=== PATIENT | male | born 1975 | race Caucasian/White ===

== ENCOUNTER 2024-03-17 20:31 | Emergency (ER) | payer OTHER, SELFPAY ==
--- OUTSIDE RECORDS SUMMARY | 2024-03-17 20:32 | XMS_ITS | Clinical Summary ---
Author Organization [employer] [facility] Address [place], [place] [address] Care Team Providers Care Stem Crusher Name Role Phone Lg Kika Elda RN Unavailable [phone] Allergies No known active allergies Medications lancets (Accu-Chek FastClix Lancing Dev)Indications:Diab etes mellitus without complication (HC) Dispense item covered by pt ins. E11.65 NIDDM type II, uncontrolled - Test 2 times/day. Reason: High A1C and New diabetes 100 Each 5 02/09/20 21 Active blood sugar diagnostic (Accu-Chek Guide test strips) stripIndications:Yasmin betes mellitus without complication (HC) TEST 2 TIMES PER DAY FOR HIGH A1C AND NEW DIAGNOSIS 200 Each 3 07/04/19 22 Active durable medical equipment (DME)Indications:Ness ntar fasciitis PLANTAR FASCIITIS NIGHT SPLINT, LARGE, REF: [id number] 1 Each 05/23/19 23 Active CPAPIndications:CHESTER (obstructive sleep apnea) CPAP machine for home use at pressure 9.4cmw, nasal mask x1/3month with nasal pillows x 2/mo 1 Each 11 06/21/19 23 Active omeprazole (PRILOSEC) 20 mg Delayed-Release capsuleIndications:G astroesophageal reflux disease with esophagitis without hemorrhage Take 1 Capsule (20 mg) by mouth once daily before a meal. 90 Capsule 3 07/12/19 24 Active fenofibrate nanocrystallized (TRICOR) 145 mg tabletIndications:Mi xed hyperlipidemia Take 1 Tablet (145 mg) by mouth once daily with a meal. 90 Tablet 3 07/12/19 24 Active meclizine (ANTIVERT) 25 mg tabletIndications:Ve rtigo Take 1 Tablet (25 mg) by mouth 3 times daily if needed for Vertigo. 90 Tablet 3 07/12/19 24 Active ondansetron (ZOFRAN ODT) 4 mg disintegrating tabletIndications:Ve rtigo Place 1 Tablet (4 mg) on the tongue every 8 hours if needed for Nausea/Vomiting . 18 Tablet 1 07/12/19 24 Active dulaglutide (TRULICITY) 3 mg/0.5 mL subcutaneous penIndications:Type 2 diabetes mellitus without complication, without long-term current use of insulin (HC) Inject 3 mg subcutaneous once weekly. 6 mL 3 07/15/19 24 Active rosuvastatin (CRESTOR) 5 mg tabletIndications:Ty pe 2 diabetes mellitus without complication, without long-term current use of insulin (HC),Mixed hyperlipidemia Take 1 Tablet (5 mg) by mouth at bedtime. 90 Tablet 1 07/15/19 24 Active polyethylene glycol-electrolyte (GOLYTELY) 236-22.74-6.74 -5.86 gram suspensionIndication s:Encounter for screening colonoscopy Drink 2 liters the day before colonoscopy and 2 liters 6 hours before colonoscopy appointment 4000 mL 02/03/20 24 Active CPAPIndications:CHESTER (obstructive sleep apnea) CPAP machine for home use at pressure 9.4cmw, CPAP mask- mask of choice, fit to comfort one per 3 months 1 Each 11 07/24/19 24 Active metFORMIN (GLUCOPHAGE) 1,000 mg tabletIndications:Ty pe 2 diabetes mellitus without complication, without long-term current use of insulin (HC) TAKE 1 TABLET TWICE A DAY WITH MEALS 180 Tablet 01/28/20 24 Active Active Problems Problem Noted Date Diagnosed Date Type 2 diabetes mellitus wit h hyperglycemia, without long-term current use of insulin 02/08/2021 Chronic insomnia 09/29/2018 Type 2 diabetes mellitus wit hout complication, without long-term current use of insulin 07/16/2018 CHESTER 04/11/2015 AHI-19, most supine 04/14/2015 Hypertriglyceridemia 01/11/2011 Fatty liver 01/11/2011 Obesity, unspecified 01/11/2011 Esophageal reflux 08/21/2006 Encounters Date Type Department Care Team Description 01/25/2024 Refill [facility] [address] [place] [address] Sparkle Romero PA Refill Request (Metformin) from Last 3 Months Immunizations Name Administration Dates Next Due COVID-19 vaccine (TrueFacet-Bio NTech 30mcg/0.3mL) PF, MDV 06/23/2020 Influenza A (H1N1), Inactivated 04/12/2009 Influenza A (H1N1), Inactiva joaquin (Age >=3 Years) 04/12/2009 Influenza, IIV3 (Age 6-35 mos) 04/12/2009 Influenza, IIV3 (Age >=3 years) 01/04/20 21,03/26/2013,03/21/2012,2009,04/12/2009,02/06/2007,01/19/2006,1 Influenza, IIV4 01/10/2022, 9,01/11/2016,2014 Td (Age >=7 Years) 07/09/2002 Tdap 07/12/2023,09/30/2012 Family History Medical History Relation Name Comments Heart Disease Father mi Stroke Father Diabetes Mother Stroke Mother multiple stroke s Diabetes Sister 1 No Known Problems Sister 2 Relation Name Status Comments Father Alive Mother Sister 1 Alive Sister 2 Alive Social History Tobacco Use Types Packs/Day Years Used Date Smoking Tobacco: Former Cigarettes 1 5 1 - 12/09/2005 Smokeless Tobacco: Never Tobacco Cessation:Counseling Given: Yes Alcohol Use Standard Drinks/Week Comments Yes 0 (1 standard drink = 0.6 oz pur e alcohol) rare [facility] Utilities Answer Date Recorded Do you have trouble paying f or utilities (for example, heat, electricity, water, phone)? Yes 07/12/2023 PHQ-2 Answer Date Recorded PHQ-2 TOTAL SCORE 0 04/25/2022 Social Connections Answer Date Recorded Do you often feel lonely or isolated from those around you? 0 07/12/2023 Financial Resource Strain Answer Date R ecorded Difficulty of Paying Living Expenses 3 07/12/2023 Difficulty of Paying Living Expenses Not on file 07/12/2023 Food Insecurity Answer Date Recorded Do you worry your food will run out before you are able to buy more? 1 07/12/2023 Transportation Needs Answer Date Record ed Does lack of transportation keep you from medica l appointments? 1 07/12/2023 Does lack of transportation keep you from work, meetings or getting things that you need? 1 07/12/2023 Housing Stability Answer Date Recorded What is your housing situation today? 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 Gender Identity Not on file Sexual Orientation Not on file Occupation Industry Job Start Date Job End Date [employer] S[employer] Not on file Not on file Not on file Obstetrics History Last Filed Vital Signs Vital Sign Reading Time Taken Comments Blood Pressure 138/83 07/12/2023 4:09 PM CDT Pulse 67 07/12/2023 4:09 PM CDT Temperature 36.6 C (97.9 F) 05/26/2020 6:25 PM CDT Respiratory Rate 16 05/26/2020 6:25 PM CDT Oxygen Saturation 99% 07/12/2023 4:09 PM CDT Inhaled Oxygen Concentration - - Weight 120.1 kg (264 lb 12.8 oz) 07/12/2023 4:09 PM CDT Height 182.9 cm (6') 07/12/2023 4:09 PM CDT Body Mass Index 35.91 07/12/2023 4:09 PM CDT Plan of Treatment Health Maintenance Due Date Last Done Comments Pneumococcal series for age 6-49 (1 of 2 - PCV) 09/17/1979 Hepatitis B series for Diabe macario (1 of 3 - 19+ 3-dose series) 1992 Pneumococcal series for age 50+ (1 of 2 - PCV) 1992 Colonoscopy through age 75 2018 Depression screening for age 12+ 04/25/2023 04/25/2022, 07/03/2021, 07/02/2021, Additional history exists Zoster (shingles) series for age 50+ (1 of 2) 09/17/2023 COVID-19 vaccine series ( season) 2023 01/10/2022, 01/03/2021, 06/23/2020, Additional history exists Influenza for age 50-64 11/10/2023 01/11/20, 01/03/2021, 01/22/2019, Additional history exists BMI (ht and wt on same day) for age 18+ 07/11/2024 07/12/2023, 04/25/2022, 06/29/2021, Additional history exists Lipids for age 45-75 07/11/2028 07/12/2023, 07/12/2023, 04/25/2022, Additional history exists Tetanus booster 07/11/2033 07/12/2023, 09/09, 09/30/2012, Additional history exists HIV for age 15-65 Completed 07/12/2023 Hepatitis C screening for ag e 18-79 Completed 07/12/2023 Tdap Completed 07/12/2023, 09/30/2012 Procedures Procedure Name Priority Date/Time Associated Diagnosis Comments ANTI HIV 1/2 Routine 07/12/2023 4:51 PM CDT Encounter for screening for HIV ANTI HCV Routine 07/12/2023 4:51 PM CDT Encounter for hepatitis C screening test for low risk patient LIPID PANEL W REFLEX MEASURED LDL Routine 07/12/2023 4:51 PM CDT Encounter for screening for lipoid disorders from Last 3 Months or Most Recently Relevant to Health Maintenance Results * (ABNORMAL) LIPID PANEL W REFLEX MEASURED LDL (07/12/2023 4:51 PM CDT) CHOLESTEROL,TOTAL 188 100 - 199 mg/dL 07/12/2023 9:33 PM CDT [facility] Comment: Cholesterol, Total Reference Ranges Desirable <200 mg/dL Borderline 200-239 mg/dL High >=240 mg/dL TRIGLYCERIDES 574(H) <150 mg/dL 07/12/2023 9:33 PM CDT [facility] HDL CHOLESTEROL 28(L) >40 mg/dL 9:33 PM CDT [facility] NON-HDL CHOLESTEROL 160(H) <145 mg/dl 07/12/2023 9:33 PM CDT [facility] CHOL/HDL RATIO 6.71(H) <4.50 07/12/2023 9:33 PM CDT [facility] LDL CHOLESTEROL 9:33 PM CDT [facility] Comment:Invalid LDL when Tri g >400. VLDL CHOLESTEROL COMMENT 07/12/2023 9:33 PM CDT [facility] Comment:Unable to calculate VLDL. PROVIDER ORDERED STATUS RANDOM 07/12/2023 9:33 PM CDT [facility] Blood BLOOD SPECIMEN / Unknown Venipuncture / Unknown 07/12/2023 4:51 PM CDT 07/12/2023 4:52 PM CDT Sparkle MULLINS CHEMISTRY Final Res ult Performing Organization Address City/[facility]/ZIP Co de Phone Number [facility] [address] [place] [address], [place] * ANTI HCV (07/12/2023 4:51 PM CDT) HEPATITIS C ANTIBODY Non-Reacti ve Non-React pricila 07/12/2023 9:08 PM CDT [facility] Comment:Please note, per www .CDC.gov: If a patient is known to be at high risk of HCV infection, or is symptomatic, and the physician's suspicion of HCV infection is high, HCV RNA testing is often employed and is of diagnostic value, even after an initial negative anti-HCV test result. Blood BLOOD SPECIMEN / Unknown Venipuncture / Unknown 07/12/2023 4:51 PM CDT 07/12/2023 4:52 PM CDT Sparkle MULLINS SEND OUTS Final Res ult [facility] [address] [place] [id number], [place] * ANTI HIV 1/2 (07/12/2023 4:51 PM CDT) HIV-1/HIV-2 SCREEN Non-Reacti ve Non-Reacti ve 07/12/2023 9:14 PM CDT [facility] Comment:HIV-1 p24 and HIV-1/ HIV-2 Ab Not Detected. Blood BLOOD SPECIMEN / Unknown Venipuncture / Unknown 07/12/2023 4:51 PM CDT 07/12/2023 4:52 PM CDT us Sparkle MULLINS SEND OUTS Final Res ult [facility] [address] [place] [address], from Last 3 Months or Most Recently Relevant to Health Maintenance Insurance [place] [address] Care Teams Stem Crusher Relationship Specialty Start Date End Date Kika Castanon RN [phone] [place] [id number] Trip Motor Operator 02/13/21
[2024-03-17 21:15] VITALS: BP 125/81; PULSE 73; RESP 18; TEMP 36.9; O2SAT 97; BMI 34.6
== END 2024-03-17 22:18 | disposition left against medical advice (07) ==
LOC: ED 22:15
PROVIDERS: Emergency Provider Emergency Medicine Emergency Medical Services; PCP Family Medicine
DX: Z53.21 Procedure and treatment not carried out due to patient leaving prior to being seen by health care provider (principal)